=== PATIENT | male | born 1940 | race Caucasian/White ===

== ENCOUNTER → 2019-06-22 | Outpatient (CLI) | payer MEDICARE, BC ==
[~2019-06-22] MED LIST: REGADENOSON 0.4 MG/5 ML SYRINGE ONE
== END | disposition home or self-care (01) ==
LOC: CFH 06:48
PROVIDERS: ATTEND Internal Medicine Cardiovascular Disease
DX: Z01.810 Encounter for preprocedural cardiovascular examination (principal); I25.9 Chronic ischemic heart disease, unspecified; R94.31 Abnormal electrocardiogram [ECG] [EKG]
CPT/HCPCS: 78452; 93017; 93306; A9502; J2785

== ENCOUNTER 2020-02-10 08:13 | Day surgery (SDC) | payer MEDICARE, BC ==
[~2020-02-10] VITALS: Ht 177.8 cm; Wt 105.0 kg
[2020-02-10] MEDS ORDERED: SODIUM CHLORIDE 0.9% 1,000 ML IV SCH (08:54)
[2020-02-10] MEDS ORDERED: MULT-257 PO (09:02)
[2020-02-10] MEDS ORDERED: OMEG1CAP6 PO (09:02)
[2020-02-10] MEDS ORDERED: ATOR20TA PO (09:02)
[2020-02-10] MEDS ORDERED: METF500T17 PO (09:02)
[2020-02-10] MEDS ORDERED: TAMS-11 PO (09:02)
[2020-02-10] MEDS ORDERED: LISI-167 PO (09:02)
[2020-02-10] MEDS ORDERED: DIPH25CA61 PO (09:02)
[2020-02-10] MEDS ORDERED: ACET-1600 PO (09:02)
[2020-02-10 09:28] VITALS: BP 157/99
[2020-02-10] MEDS ORDERED: PLEASE ENTER HEIGHT AND WEIGHT MC SCH (09:30)
[2020-02-10] MEDS ORDERED: MIDAZOLAM 1 MG/ML, 5ML ONE (10:04)
[2020-02-10] MEDS ORDERED: FENTANYL PF 100 MCG/2ML ONE (10:05)
[2020-02-10] MEDS ORDERED: LIDOCAINE 2%, 20ML ONE (10:05)
== END 2020-02-10 14:35 | disposition home or self-care (01) ==
LOC: CACL 08:13
PROVIDERS: ATTEND Internal Medicine Cardiovascular Disease
DX: R93.1 Abnormal findings on diagnostic imaging of heart and coronary circulation (principal); I25.10 Atherosclerotic heart disease of native coronary artery without angina pectoris; I10 Essential (primary) hypertension; E78.5 Hyperlipidemia, unspecified; E78.2 Mixed hyperlipidemia; E11.9 Type 2 diabetes mellitus without complications; E66.9 Obesity, unspecified; Z68.33 Body mass index [BMI] 33.0-33.9, adult; Z98.890 Other specified postprocedural states; Z85.828 Personal history of other malignant neoplasm of skin; Z72.89 Other problems related to lifestyle; Z79.84 Long term (current) use of oral hypoglycemic drugs; Z79.899 Other long term (current) drug therapy
CPT/HCPCS: 93458; 99156; C1760; C1769; C1894; J2250; J3010; Q9967